=== PATIENT | female | born 1970 | race Caucasian/White ===

== ENCOUNTER → 2020-02-25 08:16 | Outpatient (BNVA) | payer OTHER, SELFPAY | PROVIDERS: PCP Pediatrics; Visit Provider Surgery | DX: Z76.89 Persons encountering health services in other specified circumstances (principal) ==

== ENCOUNTER 2020-02-27 09:48 | Outpatient (REF) | payer OTHER, SELFPAY ==
[2020-02-27 10:46] LABS: Basophils Percent Auto 0.5 % (0-2); Eosinophils Absolute Auto 0.1 X10*3/uL (0.0-0.4); Eosinophils Percent Auto 3.2 % (0-4); Hematocrit 34.8 % (37-47); Hemoglobin 10.7 g/dl (12.0-16.0); Lymphocytes Absolute Auto 1.8 X10*3/uL (1.2-4.9); Lymphocytes Percent Auto 41.6 % (20-40); MANUAL DIFF FLAG NO; Mean Corpuscular HGB Conc 30.7 g/dl (31.0-35.0); Mean Corpuscular Hemoglobin 26.9 pg (27.0-33.0); Mean Corpuscular Volume 87.4 fL (80-98); Mean Platelet Volume 9.2 fL (9.4-12.3); Monocytes Absolute Auto 0.3 X10*3/uL (0.1-1.2); Monocytes Percent Auto 7.9 % (2-11); Neutrophils Percent Auto 46.8 % (45-73); Platelet Count 380 X10*3/uL (160-400); Red Blood Count 3.98 X10*6/uL (4.20-5.50); Red Cell Distribution Width 14.1 % (11.0-16.0); White Blood Count 4.3 X10*3/uL (4.8-10.8)
[2020-02-27 11:01] LABS: Estimated Average Glucose 166 mg/dL; Hemoglobin A1c % 7.4 %
[2020-02-27 11:09] LABS: Alanine Aminotransferase 21 U/L (0-31); Alkaline Phosphatase 54 U/L (39-117); Anion Gap 11 (12-20); Aspartate Amino Transferase 18 U/L (5-31); Bilirubin Total 0.5 mg/dL (0.0-1.0); Blood Urea Nitrogen 8 mg/dL (9-16); C Reactive Protein 1.15 mg/dL (< or = 0.50); Calcium 8.5 mg/dL (8.4-10.2); Carbon Dioxide 29 mmol/L (22-29); Chloride 103 mmol/L (96-108); Cholesterol 157 mg/dL; Estimated Glomerular Filt Rate > 60; Glucose Random 147 mg/dL (60-115); HDL Cholesterol 41 mg/dL; LDL Cholesterol Calculated 98 mg/dl; Potassium 3.5 mmol/l (3.3-5.1); Sodium 139 mmol/L (135-145); Triglycerides 92 mg/dL
[2020-02-27 11:31] LABS: Ferritin 103 ng/mL (10-250); TSH reflex Free T4 1.25 mIU/mL (0.32-4.0); Vitamin D 25-OH Total 18.4 ng/mL (>30)
[2020-02-29 04:03] LABS: Folate 16.5 ng/mL (> or = 4.0); Vitamin B12 427 pg/mL (200-900)
[2020-02-29 12:37] LABS: Insulin Level Total 15.4 uIU/mL
[2020-02-29 18:52] LABS: Calcium (PTHI) 8.9 mg/dL (8.6-10.2); PTHI 64 pg/mL (14-64)
[2020-03-01 16:32] LABS: Zinc 74 mcg/dL (60-130)
[2020-03-03 12:52] LABS: Vitamin B1 11 nmol/L (8-30)
[2020-03-03 14:47] LABS: Vitamin A 37 mcg/dL (38-98)
== END 2020-02-27 09:49 | disposition home or self-care (01) ==
LOC: HO.LAB 09:48
PROVIDERS: Visit Provider Surgery
DX: I10 Essential (primary) hypertension (principal); E66.01 Morbid (severe) obesity due to excess calories; G47.30 Sleep apnea, unspecified
CPT/HCPCS: 36415; 80053; 80061; 82306; 82607; 82728; 82746; 83036; 83525; 83970; 84425; 84443; 84590; 84630; 85025; 86140

== ENCOUNTER 2020-03-03 13:02 | Outpatient (REF) | payer OTHER, SELFPAY ==
[2020-03-05 12:13] LABS: H Pylori Breath Test NOT DETECTED (NOT DETECTED)
== END 2020-03-03 13:03 | disposition home or self-care (01) ==
LOC: HO.LNP 13:02
PROVIDERS: PCP Pediatrics; Visit Provider Physician Assistant
DX: E66.01 Morbid (severe) obesity due to excess calories (principal); I10 Essential (primary) hypertension; G47.30 Sleep apnea, unspecified
CPT/HCPCS: 83013

== ENCOUNTER → 2020-03-23 08:04 | Outpatient (BNVA) | payer OTHER, SELFPAY | PROVIDERS: PCP Pediatrics; Visit Provider Surgery ==

== ENCOUNTER 2020-03-30 07:55 | Outpatient (REF) | payer OTHER, SELFPAY ==
--- NOTE | 2020-03-30 07:57 | US_ITS ---
EXAMINATION: US COMPLETE ABDOMEN WITH LIVER ELASTOGRAPHY CLINICAL INFORMATION: Obesity COMPARISON: None. TECHNIQUE: Real-time imaging of the abdominal viscera. Noninvasive ultrasound liver fibrosis assessment is performed using Gabriel ElastPQ point quantification shear wave elastography (pSWE) with a 5 MHz transducer. Multiple elastography samples are obtained. FINDINGS: PANCREAS: Normal. ABDOMINAL AORTA: The proximal, middle, and distal aortic segments are normal in caliber. INFERIOR VENA CAVA: Visualized portions are normal. LIVER: Liver echotexture is increased. Liver echotexture appears slightly heterogeneous. No focal lesion or intrahepatic biliary duct dilatation. The right lobe measures 17 cm in length. The left lobe measures 12 cm in length. The main portal vein is patent with appropriate hepatopedal flow Shear wave elastography provides a median stiffness of 1.3 m/s (reference: normal median stiffness is 0.81 - 1.22 m/s). The IQR/median stiffness to assess sampling precision is 0.3 (reference: optimal IQR/median stiffness is under 0.3). GALLBLADDER: Surgically removed COMMON BILE DUCT: Normal in caliber measuring 0.5 cm in diameter. RIGHT KIDNEY: Normal. No hydronephrosis. No renal calculi or focal parenchymal lesions. The kidney measures 12.4 cm in maximum dimension. LEFT KIDNEY: Normal. No hydronephrosis. No renal calculi or focal parenchymal lesions. The kidney measures 12.3 cm in maximum dimension. SPLEEN: Normal. The spleen measures 9.2 cm in maximum dimension. FREE FLUID: None. US/US abdomen comp w elastography IMPRESSION: 1. Impression: Echogenic slightly heterogeneous liver echotexture probably representing fatty infiltration. Postcholecystectomy. 2. Elastography: Metavir score F0 to F1 suggestive of normal to mild increased risk of developing liver fibrosis
--- NOTE | 2020-03-30 07:57 | FL_ITS ---
EXAMINATION: XR GI SERIES CLINICAL INFORMATION: Morbid obesity and excessive calories. COMPARISON: None TECHNIQUE: Routine upper GI air-contrast study was performed. FINDINGS: Following oral administration of thick barium and effervescent granules there is normal propagation bolus from the oral cavity through the pharynx, esophagus into stomach without obstruction, narrowing or stricture. Prominent cricoesophageal sphincter is noted. On placing patient supine and prone lying the course, caliber and peristalsis of the stomach, duodenal bulb and the sweep is normal. The mucosal pattern of stomach and the duodenum is normal. FLUOROSCOPY TIME: 2.2 minutes DOSE AREA PRODUCT: 51.217 uGy-m2 (microgray-meter squared) FL/FL upper GI series IMPRESSION: Unremarkable upper GI air-contrast exam.
--- NOTE | 2020-03-30 07:57 | XR_ITS ---
EXAMINATION: XR CHEST CLINICAL INFORMATION: Morbid obesity due to excess calories COMPARISON: None TECHNIQUE: 2 views of the chest were obtained. FINDINGS: No significant abnormality is noted involving the heart, lungs, mediastinum, bony thorax or soft tissues. XR/XR chest 2V IMPRESSION: Unremarkable chest examination.
== END 2020-03-30 07:56 | disposition home or self-care (01) ==
LOC: HO.US 07:55
PROVIDERS: Visit Provider Surgery
DX: Z01.818 Encounter for other preprocedural examination (principal); E66.01 Morbid (severe) obesity due to excess calories; K21.9 Gastro-esophageal reflux disease without esophagitis; I10 Essential (primary) hypertension; G47.30 Sleep apnea, unspecified
CPT/HCPCS: 71046; 74240; 76705; 76981

== ENCOUNTER → 2020-04-13 08:10 | Outpatient (BNVA) | payer OTHER, SELFPAY | PROVIDERS: PCP Pediatrics; Visit Provider Surgery ==

== ENCOUNTER → 2020-04-26 08:15 | Outpatient (BNVA) | payer OTHER, SELFPAY | PROVIDERS: PCP Pediatrics; Visit Provider Dietitian, Registered ==

== ENCOUNTER → 2020-05-06 08:09 | Outpatient (BNVA) | payer OTHER, SELFPAY | PROVIDERS: PCP Pediatrics; Visit Provider Surgery ==

== ENCOUNTER → 2020-05-17 08:04 | Outpatient (BNVA) | payer OTHER, SELFPAY | PROVIDERS: PCP Pediatrics; Visit Provider Dietitian, Registered ==

== ENCOUNTER → 2020-05-25 11:58 | Outpatient (BNVA) | payer OTHER, SELFPAY | PROVIDERS: PCP Pediatrics; Visit Provider Dietitian, Registered ==

== ENCOUNTER → 2020-06-03 08:04 | Outpatient (BNVA) | payer OTHER, SELFPAY | PROVIDERS: PCP Pediatrics; Visit Provider Surgery ==